=== PATIENT | male | born 1985 | race Caucasian/White ===

== ENCOUNTER 2016-05-15 19:19 | Emergency (ER) | payer SELFPAY ==
--- NOTE | 2016-05-15 19:52 | ED.PDOC ---
History of Present Illness - General Chief Complaint: Lower Extremity Injury Stated Complaint: left ankle pain from fall on Monday Time Seen by Provider: 05/15/16 19:51 Source: patient Exam Limitations: no limitations - History of Present Illness Initial Comments: R.S. 31 y/o male stated fell off the stairs carrying several pieces of wood at work twisted left foot initially with lots of swelling left foot but had gone down. Occurred: other - 96 hours ago Pain - Lower Extremity: moderate: Left Foot Method of Injury: fell, twisted Improving Factors: immobilization Worsening Factors: movement Associated Symptoms: pain Allergies/Adverse Reactions: Allergies NO KNOWN ALLERGY Allergy (Unverified 12/29/12 17:05) Home Medications: Ambulatory Orders Acetaminophen W/ Codeine [Tylenol w/Codeine 300-30 mg] 1 tab PO TID PRN #14 tab 05/15/16 Review of Systems - Review of Systems Constitutional: States: no symptoms reported EENTM: States: no symptoms reported Respiratory: States: no symptoms reported Cardiology: States: no symptoms reported Gastrointestinal/Abdominal: States: no symptoms reported Genitourinary: States: no symptoms reported Musculoskeletal: States: see HPI Skin: States: no symptoms reported Neurological: States: no symptoms reported Past Medical History (General) - Patient Medical History Hx Seizures: No Hx Asthma: No Hx Hypertension: No Family Medical History - Family History Mother Family History: No Known Physical Exam - Physical Exam General Appearance: Alert, Comfortable Eyes, Ears, Nose, Throat: PERRL/EOMI, normal ENT inspection, TMs normal Neck: non-tender, full range of motion, supple Cardiovascular/Respiratory: regular rate, rhythm, no M/R/G, normal peripheral pulses, no JVD Gastrointestinal/Abdominal: non-tender, no organomegaly Back: normal inspection, no CVA tenderness, no vertebral tenderness Thigh/Hip: normal inspection, non-tender, no evidence of injury Leg: normal inspection, non-tender, no evidence of injury Knee: no evidence of injury Ankle: bone tenderness, limited ROM - left ankle foot, soft tissue tenderness, swelling Foot: bone tenderness, ecchymosis, limited ROM, soft tissue tenderness Progress - EKG/XRAY/CT XRAY: foot left-fracture left cuboid Departure - Departure Clinical Impression: Fracture of cuboid bone, closed Qualifiers: Encounter type: initial encounter Fracture alignment: nondisplaced Laterality: left Qualifier Code: (S92.215A) Nondisplaced fracture of cuboid bone of left foot, initial encounter for closed fracture Fall down steps Qualifiers: Encounter type: initial encounter Qualifier Code: (W10.8XXA) Fall (on) (from) other stairs and steps, initial encounter Time of Disposition: 21:14 Disposition: Discharge to Home or Self Care Condition: Good Departure Forms: ED Discharge - Pt. Copy, Patient Portal Self Enrollment Instructions: Foot Fracture Prescriptions: Acetaminophen W/ Codeine [Tylenol w/Codeine 300-30 mg] 1 tab PO TID PRN #14 tab PRN Reason: Pain Home Medications: Ambulatory Orders Acetaminophen W/ Codeine [Tylenol w/Codeine 300-30 mg] 1 tab PO TID PRN #14 tab 05/15/16 Additional Instructions: OFF WORK 05/16-; NEED TO FOLLOW UP WITH ORTHOPEDIC MD CALL FOR APPOINTMENT
--- NOTE | 2016-05-15 20:34 | RAD ---
EXAM DESCRIPTION: Ankle, left 3 Views (accession [id number]), Foot, left 3 Views (accession [id number]) CLINICAL HISTORY: 31 years,Male,twisted foot tues COMPARISON: None. TECHNIQUE: Three views of the left ankle and three views of the left foot. FINDINGS: There is some ossification partially visualized along the interosseous membrane which is likely chronic. Small ossific density is visualized adjacent to the proximal and lateral margin of the cuboid bone consistent with acute fracture. No other fractures or dislocations are identified. IMPRESSION: Small fracture adjacent to the proximal lateral margin of the cuboid bone. Electronically signed by: Cale Klein MD 05/15/2016 8:33 PM CDT
--- NOTE | 2016-05-15 20:34 | RAD ---
EXAM DESCRIPTION: Ankle, left 3 Views (accession [id number]), Foot, left 3 Views (accession [id number]) CLINICAL HISTORY: 31 years,Male,twisted foot tues COMPARISON: None. TECHNIQUE: Three views of the left ankle and three views of the left foot. FINDINGS: There is some ossification partially visualized along the interosseous membrane which is likely chronic. Small ossific density is visualized adjacent to the proximal and lateral margin of the cuboid bone consistent with acute fracture. No other fractures or dislocations are identified. IMPRESSION: Small fracture adjacent to the proximal lateral margin of the cuboid bone. Electronically signed by: Cale Klein MD 05/15/2016 8:33 PM CDT
[2016-05-15] MEDS ORDERED: KETOROLAC TROMETHAMINE INJ 30 MG/ML VIAL IM ONE (21:13)
[2016-05-15] MEDS ORDERED: HYDROcodone 10MG/APAP 325MG 1 EA TAB PO ONE (21:13)
[2016-05-15 22:22] VITALS: BP 132/74; TEMP 98; O2SAT 94
== END 2016-05-15 22:00 | disposition home or self-care (01) ==
LOC: ER 19:19
DX: S92.215A Nondisplaced fracture of cuboid bone of left foot, initial encounter for closed fracture (principal); W10.8XXA Fall (on) (from) other stairs and steps, initial encounter; Y99.0 Civilian activity done for income or pay
CPT/HCPCS: 73610; 73630; J1885